=== PATIENT | female | born 1985 | race Caucasian/White ===

== ENCOUNTER 2016-09-15 18:34 | Inpatient (IN) | payer OTHER ==
[~2016-09-15] VITALS: Ht 160 cm; Wt 61.7 kg
[~2016-09-15 18:34] MED LIST: SERT50TA PO; TRAZ50TA15 PO
[2016-09-15 19:15] LABS: NEG OBC AMNIO NEG; POS OBC AMNIO POS
[2016-09-15] MEDS ORDERED: TERBUTALINE 1 MG/ML VIAL. SQ PRN (19:30)
[2016-09-15] MEDS ORDERED: ACETAMINOPHEN 325 MG TABLET. PO PRN (19:30)
[2016-09-15] MEDS ORDERED: 0.9 % SODIUM CHLORIDE 10 ML DISP.SYRIN. IV PRN (19:30)
[2016-09-15] MEDS ORDERED: BUTORPHANOL 2 MG VIAL. IV PRN (19:30)
[2016-09-15] MEDS ORDERED: OXYTOCIN 30 UNIT/500 ML PREMIX 500 ML IV PRN (19:30)
[2016-09-15] MEDS ORDERED: LIDOCAINE 1% PF 30 ML VIAL. INJ PRN (19:30)
[2016-09-15] MEDS ORDERED: IV RINGERS,LACTATED 1000ML 1,000 ML IV SCH (20:00)
[2016-09-15 20:29] VITALS: BP 141/76
[2016-09-15 20:49] LABS: HEMATOCRIT 30.8 % (36.0-47.0); RED BLOOD COUNT 4.02 x10^6/uL (3.50-5.40); RED CELL DISTRIBUTION WIDTH 17.3 % (11.5-14.5)
[2016-09-15] MEDS ORDERED: AMPICILLIN 2 GM in IV NORMAL SALINE 100ML 100 ML IV ONE (21:00)
[2016-09-16] MEDS: AMPICILLIN 1 GM in IV NORMAL SALINE 50ML 50 ML IV SCH ×3 (00:59→08:46)
[2016-09-16] MEDS ORDERED: L&D EPIDURAL CASSETTE 100 ML EP ONE (07:46)
[2016-09-16] MEDS ORDERED: ROPIVacaine 0.2% IN 0.9%NACL PF 40 MG/20 ML DISP.SYRIN. ONE ×2 (07:47→07:50)
[2016-09-16] MEDS ORDERED: FENTANYL PF 100 MCG/2 ML VIAL. ONE (07:47)
[2016-09-16] MEDS ORDERED: IV RINGERS,LACTATED 1000ML 1,000 ML IV SCH (08:30)
[2016-09-16] MEDS ORDERED: EPHEDRINE PF IN SALINE 50 MG/5 ML DISP.SYRIN. IV PRN (08:30)
[2016-09-16] MEDS ORDERED: NALOXONE 0.4 MG/ML VIAL. IV PRN (08:30)
[2016-09-16] MEDS ORDERED: ROPIVacaine 0.2% PF 10 ML VIAL. EPI ONE (08:30)
[2016-09-16] MEDS ORDERED: FENTANYL PF 100 MCG/2 ML VIAL. EPI ONE (08:30)
[2016-09-16] MEDS ORDERED: ONDANSETRON PF 4 MG/2 ML VIAL. IV PRN (08:30)
[2016-09-16] MEDS ORDERED: L&D EPIDURAL CASSETTE 100 ML EP PRN (08:30)
[2016-09-16] MEDS ORDERED: ZOLPIDEM 5 MG TABLET. PO PRN (12:00)
[2016-09-16] MEDS ORDERED: DIPHENHYDRAMINE HCL 25 MG CAPSULE PO PRN (12:00)
[2016-09-16] MEDS ORDERED: HYDROCODONE/APAP 5/325MG TABLET. PO PRN ×3 (12:00)
[2016-09-16] MEDS ORDERED: HYDROCORTISONE 1% TOPICAL OINTMENT 30GM TUBE. TP PRN (12:00)
[2016-09-16] MEDS ORDERED: MAG HYDROX/ALUMINUM HYDROX/SMC 30 ML ORAL.SUSP PO PRN (12:00)
[2016-09-16] MEDS ORDERED: 0.9 % SODIUM CHLORIDE 10 ML DISP.SYRIN. IV PRN (12:00)
[2016-09-16] MEDS ORDERED: PHENYLEPH/MINERAL OIL/PETROLAT RECTAL OINTMENT 28GM TUBE. RC PRN (12:00)
[2016-09-16] MEDS ORDERED: OXYCODONE/APAP 5/325 TABLET. PO PRN (12:00)
[2016-09-16] MEDS ORDERED: ACETAMINOPHEN 325 MG TABLET. PO PRN (12:00)
[2016-09-16] MEDS ORDERED: SIMETHICONE 80 MG TAB.CHEW PO PRN (12:00)
[2016-09-16] MEDS ORDERED: OXYTOCIN 30 UNIT/500 ML PREMIX 500 ML IV PRN (12:00)
[2016-09-16] MEDS ORDERED: IBUPROFEN 800 MG TABLET. PO SCH (14:00)
[2016-09-16] MEDS: IBUPROFEN 800 MG TABLET. PO SCH ×2 (14:00→16:47)
[2016-09-16 14:30] VITALS: BP 111/68
[2016-09-16] MEDS: BENZOCAINE 20% TOPICAL AEROSOL SPRAY 57GM CAN. TP PRN (15:38)
[2016-09-16 17:20] VITALS: BP 118/76
[2016-09-16] MEDS: HYDROCODONE/APAP 5/325MG TABLET. PO PRN ×2 (17:31→22:25)
[2016-09-16] MEDS: FERROUS SULFATE 325 MG TABLET PO SCH (17:31)
[2016-09-16 22:00] VITALS: BP 108/47
[2016-09-16] MEDS: SENNOSIDES/DOCUSATE 8.6/50MG TABLET. PO PRN (22:23)
[2016-09-17 01:57] VITALS: BP 108/56
[2016-09-17 04:16] VITALS: BP 105/57
[2016-09-17] MEDS: FERROUS SULFATE 325 MG TABLET PO SCH (08:13)
[2016-09-17] MEDS: IBUPROFEN 800 MG TABLET. PO SCH ×2 (08:13→19:33)
[2016-09-17] MEDS: SENNOSIDES/DOCUSATE 8.6/50MG TABLET. PO PRN ×2 (08:16→19:33)
[2016-09-17 13:39] VITALS: BP 107/67
--- NOTE | 2016-09-17 15:06 | PDOC ---
Provider Note Provider Note Doing well VSS uterus NTTP FU in AM SHARRI WOLFF MD Sep 17, 2016 15:06
[2016-09-17 17:09] VITALS: BP 108/58
[2016-09-17] MEDS: OXYCODONE/APAP 5/325 TABLET. PO PRN ×2 (19:33→22:06)
[2016-09-17] MEDS: MAGNESIUM HYDROXIDE 2,400 MG/30 ML ORAL.SUSP. PO PRN (20:18)
[2016-09-17 22:00] VITALS: BP 108/66
[2016-09-18 04:00] VITALS: BP 108/68
[2016-09-18] MEDS: IBUPROFEN 800 MG TABLET. PO SCH (04:04)
--- NOTE | 2016-09-18 08:50 | PDOC3 ---
OB DISCHARGE SUMMARY DATE OF ADMISSION: 09/16/16 DATE OF DISCHARGE: 09/18/16 REASON FOR ADMISSION: Onset of labor, SROM PROCEDURES: Ultrasound INTRAPARTUM PROCEDURES: Spontanous Vag Deliv PROCEDURES: None OPERATIONS: None DISCHARGE DIAGNOSIS: Term Delivered DISCHARGE INFORMATION: Activity, Diet HOSPITAL COURSE unremarkable CONDITION AT DISCHARGE stable SHARRI WOLFF MD Sep 18, 2016 08:50
[2016-09-18] MEDS ORDERED: NAPR500T3 PO (08:52)
[2016-09-18] MEDS ORDERED: HYDR-971 PO (08:52)
--- NOTE | 2016-09-18 09:01 | PDOC1 ---
OB - History Hx of Present Ultrasounds: Normal mid trimester US Obstetrical Complications: Other (PUPPS) Medical Complications: None Past Family/Social History * Past Medical, Surgical, Family and Obstetric Histories reviewed from chart. Rubella: Immune RPR/VDRL: Negative GBS Status: Negative HBsAG: Negative OB - Chief Complaint & HPI Date of Admission: Date of Admission: Sep 15, 2016 at 18:34 Chief Complaint/History : 2 Para: 1 EDC: Sep 23, 2016 Reason for admission: active labor Admission Nurse Assessment Rev: Yes Problems: OB - Admission Exam Physical Exam Vitals: VS - Last 72 Hours, by Label Date Time Temp Pulse Resp B/P Pulse Ox O2 Delivery O2 Flow Rate FiO2 09/18/16 04:00 97.9 58 20 108/68 97.9 09/17/16 22:00 97.7 56 20 108/66 97.7 09/17/16 17:09 74 108/58 09/17/16 13:39 98.2 72 20 107/67 98 Room Air 98.2 09/17/16 04:16 98.1 75 20 105/57 Room Air 98.1 09/17/16 01:57 97.7 75 16 108/56 97.7 09/16/16 22:00 98.3 76 20 108/47 Room Air 98.3 09/16/16 17:31 18 Room Air 97.0 09/16/16 17:20 98.2 91 20 118/76 97 Room Air 98.2 09/16/16 14:30 97.6 81 18 111/68 100 Room Air 97.6 09/16/16 08:48 18 Room Air 09/15/16 20:29 98.2 100 18 141/76 Room Air 98.2 HEENT: Normal, Nasal Mucosa Normal, Oropharynx Normal, Moist Membranes, Fontanelles Normal Heart: Regular Rate Lungs: Clear, Equal Abdomen: Gravid Extremities: Normal Pulses, No tenderness or swelling Reflexes: Normal Cervical Dilatation: 3cm Effacement: 75% Membranes: Ruptured Amniotic Fluid: Clear Heart Rate: Normal Accelerations: Accelerations Present Decelerations: No decelerations Short Term Variability: Present Contractions on Admission: < 5 Minutes Apart Intensity: Moderate Assessment/Plan Assessment/Plan TIUP ACS SHARRI WOLFF MD Sep 18, 2016 09:01
--- NOTE | 2016-09-18 09:03 | PDOC ---
VAGINAL DELIVERY DATE DATE: 09/18/16 TIME: 09:01 : 2 Para: 1 EDC: Sep 23, 2016 VAGINAL DELIVERY: VTX PLACENTA: Spontaneous SEX: Male WEIGHT 9# Nuchal Cord: No Amniotic Fluid: Clear PAIN: Epidural EPISIOTOMY: No EXTENSION: No EBL 300cc COMPLICATIONS None CONDITION Stable Signs of Intrauterine Infectio: None Shoulder Dystocia: No DIAGNOSIS TIUP del Problems: SHARRI WOLFF MD Sep 18, 2016 09:03
[2016-09-18] MEDS: SENNOSIDES/DOCUSATE 8.6/50MG TABLET. PO PRN (09:46)
[2016-09-18] MEDS: BENZOCAINE 20% TOPICAL AEROSOL SPRAY 57GM CAN. TP PRN (09:46)
[2016-09-18] MEDS: HYDROCODONE/APAP 5/325MG TABLET. PO PRN (09:47)
[2016-09-18] MEDS: MAGNESIUM HYDROXIDE 2,400 MG/30 ML ORAL.SUSP. PO PRN (09:47)
[2016-09-18 10:30] VITALS: BP 117/67
[2016-09-18 15:10] VITALS: BP 110/69
== END 2016-09-18 16:35 | disposition home or self-care (01) | DRG 775 ==
LOC: 3 SO LND 18:34 → OBSVTOIN 18:34 → EEVIPCON 18:34 → UNDODISIN 09-16 14:15 → 3 SO LND 09-16 14:15
PROVIDERS: ADMIT Specialist; ATTEND Specialist
PROC: 10E0XZZ Delivery of Products of Conception, External Approach (ICD-10-PCS; principal; 2016-09-18)
PROC: 3E0S3CZ (ICD-10-PCS; 2016-09-18)
PROC: 00HU33Z Insertion of Infusion Device into Spinal Canal, Percutaneous Approach (ICD-10-PCS; 2016-09-18)
DX: O26.86 Pruritic urticarial papules and plaques of pregnancy (PUPPP) (principal); Z3A.40 40 weeks gestation of pregnancy; Z37.0 Single live birth
CPT/HCPCS: 36415; 84112; 85027; 86593; 86850; 86900; 86901; G0378; J0290; J2590; J2795; J7120